=== PATIENT | male | born 1995 | race American Indian/Alaskan Native ===

== ENCOUNTER 2017-10-24 15:33 | Emergency (ER) | payer OTHER ==
[2017-10-24 16:05] VITALS: BP 130/67
[2017-10-24] MEDS ORDERED: ASPIRIN PO ONE (16:06)
[2017-10-24 16:45] LABS: Basophils % (Auto) 0.4 % (0.0-1.8); Eosinophils # (Auto) 0.2 K/mm3 (0.0-0.4); Hematocrit 45.3 % (35.5-45.6); Hemoglobin 14.7 gm/dl (11.8-15.2); Lymphocytes # (Auto) 1.6 K/mm3 (1.2-5.4); Mean Corpuscular HGB Conc 33 % (32-34); Mean Corpuscular Hemoglobin 30 pg (28-32); Mean Corpuscular Volume 93 fl (84-94); Monocytes # (Auto) 0.8 K/mm3 (0.0-0.8); Monocytes % (Auto) 10.4 % (0.0-7.3); Platelet Count 189 K/mm3 (140-440); Red Blood Count 4.88 M/mm3 (3.65-5.03); Red Cell Distribution Width 13.8 % (13.2-15.2)
[2017-10-24 16:54] LABS: BUN/Creatinine Ratio 21; Blood Urea Nitrogen 19 mg/dL (9-20); Calcium 9.2 mg/dL (8.4-10.2); Hemolysis Index 31
== END 2017-10-24 23:10 | disposition left against medical advice (07) ==
LOC: ED 15:33
DX: R07.9 Chest pain, unspecified (principal); Z53.21 Procedure and treatment not carried out due to patient leaving prior to being seen by health care provider
CPT/HCPCS: 36415; 80048; 84484; 85025; 93005; 93010

== ENCOUNTER 2017-10-25 17:46 | Emergency (ER) | payer OTHER ==
--- NOTE | 2017-10-25 18:09 | Emergency Department Report ---
ED Chest Pain HPI - General Stated Complaint: CHEST PAIN Time Seen by Provider: 10/25/17 18:03 Source: patient Limitations: No Limitations - History of Present Illness Initial Comments: Patient is 22 years old male with no significant past medical history presented to the ER with substernal chest pain that started this morning. Patient describes his pain as pressure does not radiate. Patient stated that sometimes he have a high blood pressure and he will take his mother blood pressure medicine and it would help his blood pressure. Patient received nitroglycerin by EMS and stated that it did help his chest pain. His initial blood pressure was 200/110. Patient denied any other symptoms except for a headache. MD Complaint: chest pain -: This morning Onset: during rest Pain Location: substernal Pain Radiation: none Severity: moderate Severity scale (0 -10): 5 Quality: heaviness, sharp Consistency: intermittent Improves With: nitroglycerin - Related Data Previous Rx's Medication Instructions Recorded Last Taken Type amLODIPine [Norvasc] 5 mg PO DAILY #30 tab 10/25/17 Unknown Rx Allergies Allergy/AdvReac Type Severity Reaction Status Date / Time No Known Allergies Allergy Unverified 10/24/17 16:03 Heart Score - HEART Score History: Slightly suspicious EKG: Normal Age: < 45 Risk factors: 1-2 risk factors Troponin: < normal limit HEART Score: 1 - Critical Actions Critical Actions: 0-3 pts:0.9-1.7%risk of adverse cardiac event.Candidate for discharge ED Review of Systems ROS: Stated complaint: CHEST PAIN Other details as noted in HPI Comment: All other systems reviewed and negative Constitutional: denies: chills, fever Respiratory: cough Cardiovascular: chest pain. denies: palpitations, dyspnea on exertion Gastrointestinal: denies: abdominal pain, nausea, vomiting, diarrhea, constipation, hematemesis, melena, hematochezia Neurological: denies: headache, weakness, numbness, paresthesias, abnormal gait ED Past Medical Hx - Past Medical History Hx Asthma: Yes - Social History Smoking Status: Current Every Day Smoker Substance Use Type: Alcohol, Marijuana - Medications Home Medications: Home Medications Medication Instructions Recorded Confirmed Last Taken Type amLODIPine [Norvasc] 5 mg PO DAILY #30 tab 10/25/17 Unknown Rx ED Physical Exam - General Limitations: No Limitations General appearance: alert, in no apparent distress, anxious - Head Head exam: Present: atraumatic, normocephalic - Eye Eye exam: Present: normal appearance, PERRL - ENT ENT exam: Present: normal exam, normal orophraynx, mucous membranes moist. Absent: TM's normal bilaterally - Neck Neck exam: Present: normal inspection, full ROM. Absent: tenderness, meningismus, lymphadenopathy - Respiratory Respiratory exam: Present: normal lung sounds bilaterally. Absent: respiratory distress, wheezes, rales, rhonchi, stridor, chest wall tenderness, accessory muscle use, decreased breath sounds, prolonged expiratory - Cardiovascular Cardiovascular Exam: Present: regular rate, normal rhythm, normal heart sounds - GI/Abdominal GI/Abdominal exam: Present: soft, normal bowel sounds. Absent: distended, tenderness, guarding, rebound, rigid, organomegaly, mass, bruit, pulsatile mass , hernia - Extremities Exam Extremities exam: Present: normal inspection, full ROM, normal capillary refill. Absent: pedal edema, calf tenderness - Back Exam Back exam: Present: normal inspection, full ROM. Absent: tenderness, CVA tenderness (R), CVA tenderness (L) - Neurological Exam Neurological exam: Present: alert, oriented X3, CN II-XII intact, normal gait, reflexes normal. Absent: motor sensory deficit - Skin Skin exam: Present: warm, intact, normal color. Absent: cyanosis, diaphoretic, erythema, urticaria ED Course Vital Signs 10/25/17 10/25/17 18:02 19:50 Temperature 97.9 F Pulse Rate 79 Respiratory 18 16 Rate Blood Pressure 141/85 O2 Sat by Pulse 97 Oximetry - Reevaluation(s) Reevaluation #1: 10/25/17 19:33 Patient stated that he is feeling much better, his headache completely resolved. Patient is no longer complaining of chest pain. ED Medical Decision Making - Lab Data Result diagrams: 10/25/17 18:10 10/25/17 18:10 - EKG Data -: EKG Interpreted by Ct EKG shows normal: sinus rhythm Rate: normal - EKG Data Interpretation: no acute changes - Radiology Data Radiology results: report reviewed Referring Physician: SUZANNE CABRERA Patient Name: KYLE MCGUIRE Date of : 1995 Sex: Male Report Date: 2017-10-25 Report Status: Finalized Findings [facility] [address] [place] [address] Cat Scan Report Signed Patient: KYLE MCGUIRE MR#: [id number] : 1995 Acct:[id number] Age/Sex: 22 / M ADM Date: 10/25/17 Loc: ED Attending Dr: Ordering Physician: SUZANNE CABRERA Date of Service: 10/25/17 Procedure(s): CT head/brain wo con Accession Number(s): [id number] cc: SUZANNE CABRERA FINAL REPORT PROCEDURE: CT head without contrast. TECHNIQUE: Computerized tomography of the head was performed without contrast material. HISTORY: Headache, high blood pressure. COMPARISON: No prior studies are available for comparison. FINDINGS: The ventricles are normal in size. The velez matter and white matter appear normal. There are no mass lesions. There is no intracranial hemorrhage. There are no signs of acute infarction. The calvarium appears intact. The mastoid air cells and paranasal sinuses are clear as far as visualized. IMPRESSION: Normal study. Transcribed By: MRM Dictated By: PAOLA TONG MD Electronically Authenticated By: PAOLA TONG MD Signed Date/Time: 10/25/171518 DD/ 18 TD/TT: 10/25/171518 Critical care attestation.: If time is entered above; I have spent that time in minutes in the direct care of this critically ill patient, excluding procedure time. ED Disposition Clinical Impression: Chest pain, Malignant hypertension Disposition: DC-01 TO HOME OR SELFCARE Is pt being admited?: No Condition: Stable Instructions: Chest Pain (ED), Hypertension (ED) Prescriptions: amLODIPine [Norvasc] 5 mg PO DAILY #30 tab Referrals: PRIMARY CARE, [Primary Care Provider] - 3-5 Days
[2017-10-25 18:26] LABS: Basophils % (Auto) 0.4 % (0.0-1.8); Eosinophils # (Auto) 0.1 K/mm3 (0.0-0.4); Eosinophils % (Auto) 1.6 % (0.0-4.3); Hematocrit 43.2 % (35.5-45.6); Hemoglobin 14.7 gm/dl (11.8-15.2); Lymphocytes % (Auto) 21.7 % (13.4-35.0); Mean Corpuscular HGB Conc 34 % (32-34); Mean Corpuscular Hemoglobin 31 pg (28-32); Mean Corpuscular Volume 91 fl (84-94); Monocytes # (Auto) 0.5 K/mm3 (0.0-0.8); Monocytes % (Auto) 10.2 % (0.0-7.3); Platelet Count 179 K/mm3 (140-440); Red Blood Count 4.76 M/mm3 (3.65-5.03); Red Cell Distribution Width 13.8 % (13.2-15.2)
[2017-10-25 18:48] LABS: Alanine Aminotransferase 11 units/L (7-56); Albumin 3.9 g/dL (3.9-5); BUN/Creatinine Ratio 21; Blood Urea Nitrogen 17 mg/dL (9-20); Calcium 9.4 mg/dL (8.4-10.2); Hemolysis Index 15; Lipase 32 units/L (13-60)
--- NOTE | 2017-10-25 19:08 | XRay Report ---
FINAL REPORT PROCEDURE: Chest. TECHNIQUE: Portable AP view. HISTORY: Chest pain. COMPARISON: No prior studies are available for comparison. FINDINGS: The heart and mediastinum appear normal. The lungs are clear and well expanded. There are no pleural effusions. The soft tissues and regional skeleton are unremarkable. IMPRESSION: Negative portable chest.
--- NOTE | 2017-10-25 19:22 | Cat Scan Report ---
FINAL REPORT PROCEDURE: CT head without contrast. TECHNIQUE: Computerized tomography of the head was performed without contrast material. HISTORY: Headache, high blood pressure. COMPARISON: No prior studies are available for comparison. FINDINGS: The ventricles are normal in size. The velez matter and white matter appear normal. There are no mass lesions. There is no intracranial hemorrhage. There are no signs of acute infarction. The calvarium appears intact. The mastoid air cells and paranasal sinuses are clear as far as visualized. IMPRESSION: Normal study.
[2017-10-25] MEDS ORDERED: MORPHINE IV ONE (19:41)
[2017-10-25] MEDS ORDERED: ZOFRAN IV ONE (19:41)
[2017-10-25 22:16] VITALS: BP 144/78
== END 2017-10-25 22:14 | disposition home or self-care (01) ==
LOC: ED 17:46
DX: I10 Essential (primary) hypertension (principal); J45.909 Unspecified asthma, uncomplicated; F17.200 Nicotine dependence, unspecified, uncomplicated; F12.10 Cannabis abuse, uncomplicated; Z91.030 Bee allergy status; Z91.018 Allergy to other foods
CPT/HCPCS: 36415; 70450; 71010; 80053; 83690; 83880; 84484; 85025; 85379; 93005; 93010; 96374; 96375; 99285; J2270; J2405

== ENCOUNTER 2017-10-26 19:00 | Inpatient (IN) | payer OTHER ==
[2017-10-26] MEDS ORDERED: ASPIRIN PO ONE ×2 (19:04→21:43)
[2017-10-26 19:54] LABS: BUN/Creatinine Ratio 18; Blood Urea Nitrogen 16 mg/dL (9-20); Calcium 9.3 mg/dL (8.4-10.2); Hemolysis Index 34
[2017-10-26 19:59] LABS: Basophils % (Auto) 0.4 % (0.0-1.8); Eosinophils # (Auto) 0.2 K/mm3 (0.0-0.4); Eosinophils % (Auto) 4.4 % (0.0-4.3); Lymphocytes # (Auto) 1.9 K/mm3 (1.2-5.4); Mean Corpuscular HGB Conc 33 % (32-34); Mean Corpuscular Hemoglobin 30 pg (28-32); Mean Corpuscular Volume 93 fl (84-94); Monocytes # (Auto) 0.7 K/mm3 (0.0-0.8); Platelet Count 192 K/mm3 (140-440); Red Blood Count 4.96 M/mm3 (3.65-5.03); Red Cell Distribution Width 13.5 % (13.2-15.2)
--- NOTE | 2017-10-26 21:42 | Emergency Department Report ---
ED Chest Pain HPI - General Chief Complaint: Chest Pain Stated Complaint: CHEST PAIN Time Seen by Provider: 10/26/17 20:47 Source: patient Mode of arrival: Stretcher Limitations: No Limitations - History of Present Illness Initial Comments: 22 YO MALE WITH CHEST PAIN SINCE 10/21/17. HIS PAIN IS NOT CONSTANT AND HE HAS BEEN SEEN AT [facility] TWICE 10/17 AND 10/21/17. HE WAS SEEN HEREFOR THE PAST 3 DAYS AND SENT HOME. HOWEVER ,HE CONTINUES TO HAVE CHEST PAIN AND HIS EKG IS ABNORMAL . HE HAD AN EPISODE OF SHANNAN CRAIDA TO 39 AND STAYED IN THE 4O'S WHILE I WAS EXAMINING HIM. HE ADMITS TO MARIJUANA USE AND DENIES OTHER DRUG USE MD Complaint: chest pain -: Gradual, week(s) (1) Onset: during rest Pain Location: left chest Pain Radiation: none Severity scale (0 -10): 5 Quality: aching, heaviness, pressure Consistency: intermittent Improves With: nothing re: nausea, vomting Other Symptoms: denies: cough, fever, syncope Treatments Prior to Arrival: none Aspirin use within the Past 7 Days: (1) Yes - Related Data On Oral Contraceptives: No Previous Rx's Medication Instructions Recorded Last Taken Type amLODIPine [Norvasc] 5 mg PO DAILY #30 tab 10/25/17 Unknown Rx Allergies Allergy/AdvReac Type Severity Reaction Status Date / Time bee venom protein (honey bee) Allergy Shortness Verified 10/25/17 22:18 of Breath nut - unspecified Allergy Shortness Verified 10/25/17 22:18 of Breath Heart Score - HEART Score History: Moderately suspicious EKG: Non-specific Age: < 45 Risk factors: 1-2 risk factors Troponin: < normal limit HEART Score: 3 ED Review of Systems ROS: Stated complaint: CHEST PAIN Other details as noted in HPI Constitutional: denies: chills, fever Eyes: denies: eye pain, eye discharge, vision change ENT: denies: ear pain, throat pain Respiratory: denies: cough, shortness of breath, wheezing Cardiovascular: denies: chest pain, palpitations Endocrine: no symptoms reported Gastrointestinal: nausea, vomiting. denies: abdominal pain, diarrhea Genitourinary: denies: urgency, dysuria Musculoskeletal: denies: back pain, joint swelling, arthralgia Skin: denies: rash, lesions Neurological: denies: headache, weakness, paresthesias Psychiatric: denies: anxiety, depression Hematological/Lymphatic: denies: easy bleeding, easy bruising ED Past Medical Hx - Past Medical History Previous Medical History?: Yes Hx Hypertension: Yes (recently diagnosed) Hx Asthma: Yes - Social History Smoking Status: Never Smoker Substance Use Type: Marijuana - Medications Home Medications: Home Medications Medication Instructions Recorded Confirmed Last Taken Type amLODIPine [Norvasc] 5 mg PO DAILY #30 tab 10/25/17 Unknown Rx ED Physical Exam - General Limitations: No Limitations General appearance: alert, in no apparent distress - Head Head exam: Present: atraumatic, normocephalic - Eye Eye exam: Present: normal appearance, EOMI - ENT ENT exam: Present: mucous membranes moist - Neck Neck exam: Present: normal inspection, full ROM - Respiratory Respiratory exam: Present: normal lung sounds bilaterally. Absent: respiratory distress, wheezes, rales - Cardiovascular Cardiovascular Exam: Present: regular rate, normal rhythm. Absent: systolic murmur, diastolic murmur, rubs, gallop - GI/Abdominal GI/Abdominal exam: Present: soft, normal bowel sounds - Rectal Rectal exam: Present: deferred - Extremities Exam Extremities exam: Present: normal inspection, full ROM - Back Exam Back exam: Present: normal inspection, full ROM - Neurological Exam Neurological exam: Present: alert, oriented X3, CN II-XII intact - Psychiatric Psychiatric exam: Present: normal affect, normal mood - Skin Skin exam: Present: warm, dry, intact, normal color. Absent: rash ED Course Vital Signs 10/26/17 10/26/17 10/26/17 19:59 20:00 20:16 Pulse Rate 53 L 60 53 L Respiratory 7 L 15 15 Rate Blood Pressure 138/66 138/66 142/74 O2 Sat by Pulse 98 98 Oximetry 10/26/17 10/26/17 10/26/17 20:30 20:45 20:52 Pulse Rate 53 L 50 L Respiratory 13 9 L 20 Rate Blood Pressure 138/68 137/63 O2 Sat by Pulse 99 97 98 Oximetry 10/26/17 10/26/17 21:00 21:15 Pulse Rate 51 L 66 Respiratory 13 13 Rate Blood Pressure 138/79 138/79 O2 Sat by Pulse 100 97 Oximetry - Reevaluation(s) Reevaluation #1: 10/26/17 23:34 PT HAD AN EPISODE OF NAUSEA/VOMITING. EKG WAS REPEATED SESAR score - Sesar Score Age > 65: (0) No Aspirin use within the Past 7 Days: (1) Yes 3 or more CAD Risk Factors: (0) No 2 or more Angina events in past 24 hrs: (1) Yes Known CAD with more than 50% Stenosis: (0) No Elevated Cardiac Markers: (0) No ST Deviation Greater than 0.5mm: (0) No SESAR Score: 2 ED Medical Decision Making - Lab Data Result diagrams: 10/26/17 19:21 10/26/17 19:21 - EKG Data -: EKG Interpreted by Me EKG shows normal: sinus rhythm, axis, intervals, QRS complexes Rate: bradycardia - EKG Data Interpretation: nonspecific ST-T wave georgette - Radiology Data Radiology results: report reviewed (CXR;NEGATIVE) Critical Care Time: Yes Critical care time in (mins) excluding proc time.: 30 Critical care attestation.: If time is entered above; I have spent that time in minutes in the direct care of this critically ill patient, excluding procedure time. GABBY Critical Care Time: 30MIN ED Disposition Clinical Impression: Left ventricular hypertrophy Chest pain Qualifiers: Chest pain type: unspecified Qualified Code(s): R07.9 - Chest pain, unspecified Disposition: DC-09 OP ADMIT IP TO THIS HOSP Is pt being admited?: Yes Does the pt Need Aspirin: No Condition: Stable Instructions: Chest Pain (ED) Referrals: PAOLA LUA MD [Primary Care Provider] - 3-5 Days Time of Disposition: 23:32 (DR MARIE PAGED AND CASE REVIEWED AND SHE WILL ADMIT THE PT TO THE HOSPITAL)
[2017-10-26] MEDS ORDERED: PLAVIX PO ONE (21:43)
[2017-10-26] MEDS ORDERED: ZOFRAN ONE (21:50)
--- NOTE | 2017-10-26 22:16 | XRay Report ---
FINAL REPORT PROCEDURE: Chest. TECHNIQUE: Portable AP upright view. HISTORY: Chest pain. COMPARISON: Chest done earlier today. FINDINGS: The heart and mediastinum appear normal. The lungs are clear and well expanded. There are no pleural effusions. The soft tissues and regional skeleton are unremarkable. IMPRESSION: Negative portable chest.
[2017-10-26 22:41] LABS: Creatine Kinase MB 1.5 ng/mL (0.0-4.0)
[2017-10-26] MEDS ORDERED: MORPHINE ONE (23:11)
[2017-10-26 23:14] LABS: Bacteria,Urine 1+ /HPF (Negative); Bilirubin,Urine NEG (Negative); Blood,Urine NEG (Negative); Color,Urine Yellow (Yellow); Mucus,Urine 1+ /HPF; Nitrite,Urine NEG (Negative); Protein,Urine <15 mg/dL mg/dL (Negative)
[2017-10-26] MEDS ORDERED: MORPHINE IV ONE (23:36)
--- NOTE | 2017-10-26 23:37 | History and Physical Report ---
History of Present Illness Date of examination: 10/26/17 History of present illness: 22 year old man with history of asthma, migraine comes to the emergency room with complaints of chest pain. PAin is in the left chest, described as pressure , sharp snsation, constant, no radiation, intensity, 5/10, he cannot identify exacerbating or relieving factors. He was seen at [facility] [place] on October 17, she was given steroids and motrin but no improvement in his symptoms. Admits to nausea, vomiting, Shortness of breath, no diaphoresis or palpitaions. Patient was seen here on 2 previous occasions for chest pain. His heart rate has been in the high 40s since his evaluation of chest pain. He does not know what his heart rate has been previously. No URI symptoms Review Of Systems: Constitutional: no weight loss Ears, eyes, nose, mouth and throat: no nasal congestion, no nasal discharge, no sinus pressure, blurry vision, diplopia Neck: No neck pain or rigidity. Cardiovascular: No palpitations Respiratory: No cough Gastrointestinal: No abdominal pain, hematochezia Genitourinary : no dysuria, frequency , hematuria Musculoskeletal: no muscle ache Integumentary: no rash, no pruritis Neurological: no parathesias, focal weakness Endocrine: no cold or heat intolerance, no polyuria or polydipsia Hematologic/Lymphatic: no easy bruising, no easy bleeding, no gland swelling Allergic/Immunologic: no urticaria, no angioedema. PAST MEDICAL HISTORY:asthma, migraine PAST SURGICAL HISTORY:None FAMILY HISTORY:Hypertension SOCIAL HISTORY:Denies alcohol, tobacco, smoke marijuana Medications and Allergies Allergies Allergy/AdvReac Type Severity Reaction Status Date / Time bee venom protein (honey bee) Allergy Shortness Verified 10/25/17 22:18 of Breath nut - unspecified Allergy Shortness Verified 10/25/17 22:18 of Breath Exam - Physical Exam Narrative exam: Gen. appearance: Patient lying in bed in no acute distress HEENT: Normocephalic/atraumatic, pupils equal round reactive to light, extra occular movement intact, no scleral icterus, no JVD or thyromegaly or nodule, neck is supple, mucous membrane moist, no erythema or exudate Heart: S1-S2, regular rate and rhythm Lungs: Clear to auscultation bilateral breathing comfortable Abdomen: Positive bowel sounds, nontender, nondistended, no organomegaly Extremities: No edema, cyanosis, clubbing Neuro:: Oriented 3 , cranial nerves II-12 intact, speech, motor intact Skin: No rash, nodules, warm dry - Constitutional Vitals: Temp Pulse Resp BP Pulse Ox 66 13 138/79 97 10/26/17 21:15 10/26/17 21:15 10/26/17 21:15 10/26/17 21:15 Results - Labs CBC & Chem 7: 10/28/17 04:40 10/28/17 04:40 Labs: Abnormal lab results 10/26/17 Range/Units 19:21 Hct 46.0 H (35.5-45.6) % Lymph % (Auto) 38.0 H (13.4-35.0) % [place] % (Auto) 15.0 H (0.0-7.3) % Eos % (Auto) 4.4 H (0.0-4.3) % - Imaging and Cardiology EKG: image reviewed Chest x-ray: image reviewed Assessment and Plan Assessment Atpical chest pain Asthma Migraine Plan Admit to medicine Check cardiac enzymes, echo, consult cardiology DVT prophylaxis
[2017-10-26 23:46] LABS: Amphetamine Screen,Urine PRESUMPTIVE NEGATIVE; Benzodiazepines Screen,Urine PRESUMPTIVE NEGATIVE; Cocaine Screen,Urine PRESUMPTIVE NEGATIVE; Methadone Screen,Urine PRESUMPTIVE NEGATIVE; Opiate Screen,Urine PRESUMPTIVE NEGATIVE
[2017-10-26 23:59] LABS: Cannabinoid Screen,Urine PRESUMPTIVE POSITIVE
[2017-10-27] MEDS ORDERED: DULCOLAX PR PRN (00:05)
[2017-10-27] MEDS ORDERED: MILK OF MAGNESIA PO PRN (00:05)
[2017-10-27] MEDS ORDERED: TYLENOL PO PRN (00:05)
[2017-10-27] MEDS ORDERED: ZOFRAN IV PRN (00:05)
[2017-10-27] MEDS ORDERED: REGLAN ONE (00:49)
[2017-10-27 01:14] LABS: Creatine Kinase MB 1.5 ng/mL (0.0-4.0)
[2017-10-27] MEDS: NACL 0.45% 1000 ML 1,000 ML IV SCH ×3 (04:29→23:44)
[2017-10-27 06:52] LABS: Creatine Kinase MB 1.5 ng/mL (0.0-4.0)
[2017-10-27] MEDS: PERCOCET 5/325 PO PRN ×3 (09:45→19:50)
--- NOTE | 2017-10-27 13:26 | Event Note ---
Date: 10/27/17 Cardiology note dictated #1 chest pain etiology uncertain Patient is seen for cardiac evaluation he has history of recurrent chest pain and has been seen in the emergency room 2 times in the past. EKG and cardiac enzymes are negative. Cardiac examination is stable. Plan is to obtain echocardiogram and a treadmill test for further cardiac evaluation. Thank you Dr. SADE Barker
--- NOTE | 2017-10-27 15:09 | Progress Note ---
Assessment and Plan Assessment and plan: 24 year old man with history of asthma, migraine comes with complaints of chest pain Atypical chest pain -Likely costochondritis - obtain Stress test and Echo -case dw cardiology Asthma not in exacerbation, stable Migraine stable, not in exacerbation History Interval history: Review of systems Constitutional: No fevers, no malaise, no joint pains CVS: He is still complaining of dull chest pain, substernal, 6 out of 10, radiates to his right chest., no orthopnea, no dyspnea on exertion, no pedal edema GI: No abdominal pain, no diarrhea, no vomiting, no constipation Respiratory: No shortness of breath, no wheezing, no coughing Hospitalist Physical - Constitutional Vitals: Temp Pulse Resp BP Pulse Ox 98.7 F 48 L 16 136/76 100 10/27/17 12:17 10/27/17 12:17 10/27/17 12:17 10/27/17 12:17 10/27/17 12:17 General appearance: Present: no acute distress - EENT Eyes: Present: PERRL ENT: hearing intact - Neck Neck: Present: supple - Respiratory Respiratory effort: normal Respiratory: bilateral: CTA - Cardiovascular Rhythm: regular - Extremities Extremities: no ischemia Peripheral Pulses: within normal limits - Abdominal General gastrointestinal: soft, non-tender - Integumentary Integumentary: Present: clear, warm - Psychiatric Psychiatric: appropriate mood/affect, intact judgment & insight - Neurologic Neurologic: CNII-XII intact, moves all extremities Results - Labs CBC & Chem 7: 10/26/17 19:21 10/26/17 19:21 Labs: Laboratory Last Values WBC 4.9 K/mm3 (4.5-11.0) 10/26/17 19:21 RBC 4.96 M/mm3 (3.65-5.03) 10/26/17 19:21 Hgb 15.0 gm/dl (11.8-15.2) 10/26/17 19:21 Hct 46.0 % (35.5-45.6) H 10/26/17 19:21 MCV 93 fl (84-94) 10/26/17 19:21 MCH 30 pg (28-32) 10/26/17 19:21 MCHC 33 % (32-34) 10/26/17 19:21 RDW 13.5 % (13.2-15.2) 10/26/17 19:21 Plt Count 192 K/mm3 (140-440) 10/26/17 19:21 Lymph % (Auto) 38.0 % (13.4-35.0) H 10/26/17 19:21 [place] % (Auto) 15.0 % (0.0-7.3) H 10/26/17 19:21 Eos % (Auto) 4.4 % (0.0-4.3) H 10/26/17 19:21 Baso % (Auto) 0.4 % (0.0-1.8) 10/26/17 19:21 Lymph # 1.9 K/mm3 (1.2-5.4) 10/26/17 19:21 [place] # 0.7 K/mm3 (0.0-0.8) 10/26/17 19:21 Eos # 0.2 K/mm3 (0.0-0.4) 10/26/17 19:21 Baso # 0.0 K/mm3 (0.0-0.1) 10/26/17 19:21 Seg Neutrophils % 42.2 % (40.0-70.0) 10/26/17 19:21 Seg Neutrophils # 2.1 K/mm3 (1.8-7.7) 10/26/17 19:21 D-Dimer < 135.00 ng/mlDDU (0-234) 10/26/17 22:07 Sodium 140 mmol/L (137-145) 10/26/17 19:21 Potassium 3.7 mmol/L (3.6-5.0) 10/26/17 19:21 Chloride 101.7 mmol/L (98-107) 10/26/17 19:21 Carbon Dioxide 23 mmol/L (22-30) 10/26/17 19:21 Anion Gap 19 mmol/L 10/26/17 19:21 BUN 16 mg/dL (9-20) 10/26/17 19:21 Creatinine 0.9 mg/dL (0.8-1.5) 10/26/17 19:21 Estimated GFR > 60 ml/min 10/26/17 19:21 BUN/Creatinine Ratio 18 % 10/26/17 19:21 Glucose 86 mg/dL (75-100) 10/26/17 19:21 Calcium 9.3 mg/dL (8.4-10.2) 10/26/17 19:21 Total Creatine Kinase 154 units/L (55-170) 10/27/17 06:15 CK-MB (CK-2) 1.5 ng/mL (0.0-4.0) 10/27/17 06:15 CK-MB (CK-2) Rel Index 0.9 (0-4) 10/27/17 06:15 Troponin T < 0.010 ng/mL (0.00-0.029) 10/27/17 06:15 Urine Color Yellow (Yellow) 10/26/17 Unknown Urine Turbidity Clear (Clear) 10/26/17 Unknown Urine pH 7.0 (5.0-7.0) 10/26/17 Unknown Ur Specific [place] 1.030 (1.003-1.030) 10/26/17 Unknown Urine Protein <15 mg/dl mg/dL (Negative) 10/26/17 Unknown Urine Glucose (UA) Neg mg/dL (Negative) 10/26/17 Unknown Urine Ketones Neg mg/dL (Negative) 10/26/17 Unknown Urine Blood Neg (Negative) 10/26/17 Unknown Urine Nitrite Neg (Negative) 10/26/17 Unknown Urine Bilirubin Neg (Negative) 10/26/17 Unknown Urine Urobilinogen 4.0 mg/dL (<2.0) 10/26/17 Unknown Ur Leukocyte Esterase Neg (Negative) 10/26/17 Unknown Urine WBC (Auto) 3.0 /HPF (0.0-6.0) 10/26/17 Unknown Urine RBC (Auto) 2.0 /HPF (0.0-6.0) 10/26/17 Unknown U Epithel Cells (Auto) < 1.0 /HPF (0-13.0) 10/26/17 Unknown Urine Bacteria (Auto) 1+ /HPF (Negative) 10/26/17 Unknown Urine Mucus 1+ /HPF 10/26/17 Unknown Urine Opiates Screen Presumptive negative 10/26/17 Unknown Urine Methadone Screen Presumptive negative 10/26/17 Unknown Ur Barbiturates Screen Presumptive negative 10/26/17 Unknown Ur Phencyclidine Scrn Presumptive negative 10/26/17 Unknown Ur Amphetamines Screen Presumptive negative 10/26/17 Unknown U Benzodiazepines Scrn Presumptive negative 10/26/17 Unknown Urine Cocaine Screen Presumptive negative 10/26/17 Unknown U Marijuana (THC) Screen Presumptive positive 10/26/17 Unknown Drugs of Abuse Note Disclamer 10/26/17 Unknown Plasma/Serum Alcohol < 0.01 gm% (0-0.07) 10/26/17 22:07
--- NOTE | 2017-10-28 00:34 | Consultation ---
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 It is fairly localized in the second and third interspaces closer to the left sternal border. He describes it as sometimes pressure type of sensation and other times as sharp and sometimes it is quite intense. Not precipitated by any activity, but this is almost a constant discomfort. EKG done in the Emergency Room showed sinus bradycardia, early repolarization, no acute changes on electrocardiogram noted. Cardiac enzymes are noted to be negative. The patient has no previous history of cardiac problems. Recently noted to have hypertension. REVIEW OF SYSTEMS: HEAD, EYES, EARS, NOSE AND THROAT: No symptoms. ENDOCRINE: No symptoms. No history of diabetes. GASTROINTESTINAL: No abdominal pain, nausea, or vomiting. Bowel habits have been regular. GENITOURINARY: No symptoms. CENTRAL NERVOUS SYSTEM: No symptoms. LOCOMOTOR: No symptoms. HEMATOLOGY/ONCOLOGY: No symptoms. PSYCHIATRIC: No symptoms. PERSONAL HISTORY: Nonsmoker, nonalcoholic. History of smoking marijuana. PAST MEDICAL HISTORY: Known to have had bronchial asthma and history of migraine headaches. The patient has been seen once at [facility] and once here and this happens to be third time he was in the Emergency Room and the patient is admitted for further management. PHYSICAL EXAMINATION: GENERAL: Adult male, well built, well nourished, in no distress. Pleasant and cooperative. VITAL SIGNS: Blood pressure 136/76, pulse 48. HEENT: Unremarkable. NECK: Supple. No thyromegaly. Both carotids are palpable and equal. Neck veins are flat. CHEST: Symmetrical. LUNGS: Clear. CARDIOVASCULAR: S1 and S2 are heard well. No S3. ABDOMEN: Soft, nontender, no hepatosplenomegaly. Peristaltic sounds are heard well. EXTREMITIES: No edema or calf tenderness. LABORATORY DATA: EKG, no acute changes are present. WBC 4.9, hemoglobin 15, hematocrit 46. Sodium 140, potassium 3.7. Cardiac enzymes are negative. IMPRESSION: 1. Chest pain, etiology uncertain. 2. History of migraine. 3. Recent onset hypertension. Clinically, cardiac status is stable. We will obtain a stress test and echocardiogram. The patient will be monitored closely. Thank you for allowing me to participate in the care of this gentleman. JOB# [id number] MARII/MUKESH
[2017-10-28 05:28] LABS: Basophils % (Auto) 0.2 % (0.0-1.8); Eosinophils # (Auto) 0.3 K/mm3 (0.0-0.4); Eosinophils % (Auto) 6.9 % (0.0-4.3); Hematocrit 44.6 % (35.5-45.6); Hemoglobin 15.1 gm/dl (11.8-15.2); Lymphocytes # (Auto) 1.3 K/mm3 (1.2-5.4); Lymphocytes % (Auto) 34.2 % (13.4-35.0); Mean Corpuscular HGB Conc 34 % (32-34); Mean Corpuscular Hemoglobin 31 pg (28-32); Mean Corpuscular Volume 91 fl (84-94); Monocytes # (Auto) 0.5 K/mm3 (0.0-0.8); Monocytes % (Auto) 13.7 % (0.0-7.3); Platelet Count 179 K/mm3 (140-440); Red Blood Count 4.89 M/mm3 (3.65-5.03); Red Cell Distribution Width 13.1 % (13.2-15.2)
[2017-10-28 06:04] LABS: BUN/Creatinine Ratio 13; Blood Urea Nitrogen 9 mg/dL (9-20); Calcium 8.9 mg/dL (8.4-10.2); Hemolysis Index 8
--- NOTE | 2017-10-28 13:05 | Progress Note ---
Assessment and Plan Assessment: Chest pain History of migraines Plan: Treadmill stress test negative for ischemia. Patient walked for 13 minutes. Echo showed normal LV function and no significant valvular abnormalities. Patient may be discharged from a cardiac standpoint. The patient has been seen in conjunction with Dr. Syed who agrees with the assessment and plan of care. Subjective Date of service: 10/28/17 Principal diagnosis: chest pain Interval history: Patient seen and examined in the stress lab. Sinus rhythm on the monitor. Objective Last Vital Signs Temp 98.3 F 10/28/17 07:31 Pulse 51 L 10/28/17 07:31 Resp 18 10/28/17 07:31 BP 130/74 10/28/17 07:31 Pulse Ox 100 10/28/17 07:31 - Physical Examination General: No Apparent Distress HEENT: Positive: PERRL, Normocephaly, Mucus Membranes Moist Neck: Positive: neck supple, trachea midline Cardiac: Positive: Reg Rate and Rhythm, S1/S2 Lungs: Positive: clear to auscultation Neuro: Positive: Grossly Intact Abdomen: Positive: Soft, Active Bowel Sounds. Negative: Tender Skin: Positive: Clear. Negative: Rash Extremities: Present: normal. Absent: edema - Labs and Meds CBC 10/28/17 Range/Units 04:40 WBC 3.8 L (4.5-11.0) K/mm3 RBC 4.89 (3.65-5.03) M/mm3 Hgb 15.1 (11.8-15.2) gm/dl Hct 44.6 (35.5-45.6) % Plt Count 179 (140-440) K/mm3 Lymph # 1.3 (1.2-5.4) K/mm3 Hodgeman # 0.5 (0.0-0.8) K/mm3 Eos # 0.3 (0.0-0.4) K/mm3 Baso # 0.0 (0.0-0.1) K/mm3 Comprehensive Metabolic Panel 10/28/17 Range/Units 04:40 Sodium 139 (137-145) mmol/L Potassium 3.8 (3.6-5.0) mmol/L Chloride 102.1 (98-107) mmol/L Carbon Dioxide 25 (22-30) mmol/L BUN 9 (9-20) mg/dL Creatinine 0.7 L (0.8-1.5) mg/dL Glucose 87 (75-100) mg/dL Calcium 8.9 (8.4-10.2) mg/dL - Imaging and Cardiology EKG: image reviewed Echo: report reviewed (EF 55-60%, no significant valvular abnomalities) - Telemetry EKG Rhythm: Sinus Rhythm
--- NOTE | 2017-10-28 14:03 | Discharge Summary ---
Providers - Providers Date of Admission: 10/26/17 23:38 Attending physician: JASPAL JIMENEZ MD 10/27/17 00:05 Consult to Physician [CONS] Routine Consulting Provider: VLAD VELAZQUEZ Reason For Exam: cp Place consult to:: [facility] Notified:: y Comment:: added to list Primary care physician: PAOLA LUA Hospitalization Condition: Stable Hospital course: 24 year old man with history of asthma, migraine comes with complaints of chest pain. Pain was atypical. He went on to have a stress test which was negative, it is most likely due to costochondritis and he was advised to take Tylenol and NSAIDs as needed. Discharge diagnoses Chest pain due to costochondritis Mild intermittent asthma Migraine headaches, intermittent and chronic Disposition: - TO HOME OR SELFCARE Time spent for discharge: 33 minutes Core Measure Documentation - Palliative Care Palliative Care/ Comfort Measures: Not Applicable - Core Measures Any of the following diagnoses?: none Exam - Constitutional Vitals: Temp Pulse Resp BP Pulse Ox 98.3 F 51 L 18 130/74 100 10/28/17 07:31 10/28/17 07:31 10/28/17 07:31 10/28/17 07:31 10/28/17 07:31 General appearance: Present: no acute distress, well-nourished - EENT Eyes: Present: PERRL ENT: hearing intact, clear oral mucosa - Neck Neck: Present: supple, normal ROM - Respiratory Respiratory effort: normal Respiratory: bilateral: CTA - Cardiovascular Heart Sounds: Present: S1 & S2. Absent: rub, click - Extremities Extremities: pulses symmetrical, No edema Peripheral Pulses: within normal limits - Abdominal General gastrointestinal: Present: soft, non-tender, non-distended, normal bowel sounds Male genitourinary: Present: normal - Integumentary Integumentary: Present: clear, warm, dry - Musculoskeletal Musculoskeletal: gait normal, strength equal bilaterally - Psychiatric Psychiatric: appropriate mood/affect, intact judgment & insight - Neurologic Neurologic: CNII-XII intact, moves all extremities Plan Follow up with: PAOLA LUA MD [Primary Care Provider] - 3-5 Days Forms: Work/School Release Form
[2017-10-28 15:49] VITALS: BP 152/84
== END 2017-10-28 17:07 | disposition home or self-care (01) | DRG 206 ==
LOC: ED 19:00 → 4A 23:38
PROVIDERS: ADMIT Internal Medicine; ATTEND Internal Medicine
DX: M94.0 Chondrocostal junction syndrome [Tietze] (principal); G43.909 Migraine, unspecified, not intractable, without status migrainosus; J45.909 Unspecified asthma, uncomplicated; I10 Essential (primary) hypertension; I51.7 Cardiomegaly; F12.90 Cannabis use, unspecified, uncomplicated; Z79.899 Other long term (current) drug therapy; Z82.49 Family history of ischemic heart disease and other diseases of the circulatory system; Z91.030 Bee allergy status; Z91.018 Allergy to other foods
CPT/HCPCS: 36415; 71010; 80048; 80307; 80320; 81001; 82550; 82553; 84484; 85025; 85379; 93005; 93010; 93017; 93306; 96374; 99291; G0480; J2270; J2405; J2765